=== PATIENT | male | born 1985 ===

== ENCOUNTER 2017-09-11 14:07 | Emergency (ER) | payer OTHER ==
[2017-09-11 14:07] VITALS: BMI 20.3
[2017-09-11 14:18] VITALS: BP 137/63; PULSE 77; RESP 18; TEMP 96; O2SAT 98
--- NOTE | 2017-09-11 14:44 | ED PDOC ---
HPI: CCC, URI, Sore Throat Time Seen by Provider: 09/11/17 14:20 Chief Complaint (Nursing): Flu-like Symptoms Chief Complaint (Provider): Flu-like symptoms History Per: Patient History/Exam Limitations: no limitations Onset/Duration Of Symptoms: Days (5) Current Symptoms Are (Timing): Still Present Associated Symptoms: Chills, Cough (productive), Sputum (greenish) Pain Scale Rating Of: 5 Additional Complaint(s): Josue Spann is a 32 year old male, with a past medical history of depression, who presents to the emergency department complaining of a productive cough with green sputum associated with tactile chills, and sweats at night onset for 5 days. He denies taking any over the counter medications. He denies any fever or chills. No further medical complaints. PMD: Lai [place]. Past Medical History Reviewed: Historical Data, Nursing Documentation, Vital Signs Vital Signs: Last Vital Signs Temp 96 F L 09/11/17 14:16 Pulse 77 09/11/17 14:16 Resp 18 09/11/17 14:16 BP 137/63 09/11/17 14:16 Pulse Ox 98 09/11/17 14:48 - Medical History PMH: Depression, Fractures, Seizures - Family History Family History: States: Unknown Family Hx - Immunization History Hx Tetanus Toxoid Vaccination: No Hx Influenza Vaccination: No Hx Pneumococcal Vaccination: No - Home Medications Home Medications: Ambulatory Orders Medication Instructions Recorded Amoxicillin/Clavulanate [Augmentin 1 tab PO Q12 #9 tab 10/26/16 875 MG-125 MG] Naproxen [Naprosyn] 500 mg PO Q12 PRN #20 tablet 10/26/16 Albuterol HFA [Ventolin HFA 90 2 puff IH [id number] PRN #1 inhaler 09/11/17 mcg/actuation (8 g)] Azithromycin [Zithromax] 250 mg PO DAILY #6 tab 09/11/17 Promethazine/Codeine 5 ml PO ONCE PRN #50 ml 09/11/17 [Codeine/Promethazine 10 MG/5 Ml-6.25 MG/5 Ml] Pseudoephedrine HCl 60 mg PO Q6 PRN #24 tablet 09/11/17 predniSONE [predniSONE Tab] 2 tab PO DAILY #10 tab 09/11/17 - Allergies Allergies/Adverse Reactions: Allergies Allergy/AdvReac Type Severity Reaction Status Date / Time No Known Allergies Allergy Verified 11/03/16 08:05 Review of Systems Constitutional: Positive for: Sweats. Negative for: Fever, Chills Respiratory: Positive for: Cough (productive), Sputum (greenish) Physical Exam - Reviewed Nursing Documentation Reviewed: Yes Vital Signs Reviewed: Yes - Physical Exam Appears: Positive for: Well Head Exam: Positive for: ATRAUMATIC, NORMAL INSPECTION, NORMOCEPHALIC Skin: Positive for: Normal Color, Warm, Dry Eye Exam: Positive for: Normal appearance ENT: Positive for: Nasal Congestion Neck: Positive for: Normal, Painless ROM, Supple Respiratory: Positive for: Wheezing (mild). Negative for: Respiratory Distress Neurologic/Psych: Positive for: Alert, Oriented - ECG O2 Sat by Pulse Oximetry: 98 (RA) Pulse Ox Interpretation: Normal - Progress ED Course And Treament: duoneb x 1 dose Medical Decision Making Medical Decision Making: Initial Impression: Productive cough Scribe Attestation: Documented by Luis Eduardo Solo, acting as a scribe for Ronnell CARRILLO. Provider Scribe Attestation: All medical record entries made by the Scribe were at my direction and personally dictated by me. I have reviewed the chart and agree that the record accurately reflects my personal performance of the history, physical exam, medical decision making, and the department course for this patient. I have also personally directed, reviewed, and agree with the discharge instructions and disposition. Disposition - Clinical Impression Clinical Impression: Bronchitis - Patient ED Disposition Is Patient to be Admitted: No - Disposition Referrals: [facility] [Outside] Disposition: Routine/Home Disposition Time: 14:55 Condition: FAIR Prescriptions: Albuterol HFA [Ventolin HFA 90 mcg/actuation (8 g)] 2 puff IH [id number] PRN #1 inhaler PRN Reason: Cough Azithromycin [Zithromax] 250 mg PO DAILY #6 tab predniSONE [predniSONE Tab] 2 tab PO DAILY #10 tab Promethazine/Codeine [Codeine/Promethazine 10 MG/5 Ml-6.25 MG/5 Ml] 5 ml PO ONCE PRN #50 ml PRN Reason: Cough Pseudoephedrine HCl 60 mg PO Q6 PRN #24 tablet PRN Reason: Nasal Congestion Instructions: Acute Bronchitis (ED) Forms: [facility] ([place]), [facility] ED School/Work Excuse
[2017-09-11] MEDS ORDERED: Albuterol 0.083% Inhal Sol (2.5 mg/3 mL) UD INH STA (14:51)
[2017-09-11] MEDS ORDERED: Albuterol-Ipratrop 3 mg / 0.5 (3 ml) UD ONE (14:53)
== END 2017-09-11 15:26 | disposition home or self-care (01) ==
LOC: H.ER 14:07
DX: J40 Bronchitis, not specified as acute or chronic (principal); Z86.59 Personal history of other mental and behavioral disorders

== ENCOUNTER 2018-11-19 08:09 | Emergency (ER) | payer MEDICAID, OTHER ==
[2018-11-19 08:10] VITALS: BMI 20.3
[2018-11-19 08:20] VITALS: RESP 16; O2SAT 99
--- NOTE | 2018-11-19 08:40 | ED PDOC ---
HPI: Dental Pain/Injury Time Seen by Provider: 11/19/18 08:13 Chief Complaint (Nursing): Dental Pain History Per: Patient Onset/Duration Of Symptoms: Other (2 years) Current Symptoms Are (Timing): Still Present Severity: Moderate Additional Complaint(s): Right lower jaw/tooth pain x 2 years. Denies fever or drainage. Denies injury. Denies sore throat. Past Medical History Vital Signs: Last Vital Signs Temp 97.7 F 11/19/18 08:19 Pulse 67 11/19/18 08:19 Resp 16 11/19/18 08:19 BP 139/68 11/19/18 08:19 Pulse Ox 99 11/19/18 08:19 - Medical History PMH: Depression, Fractures, Seizures - Family History Family History: States: Unknown Family Hx - Immunization History Hx Tetanus Toxoid Vaccination: No Hx Influenza Vaccination: No Hx Pneumococcal Vaccination: No - Home Medications Home Medications: Ambulatory Orders Medication Instructions Recorded Amoxicillin/Clavulanate [Augmentin 1 tab PO Q12 #9 tab 10/26/16 875 MG-125 MG] Naproxen [Naprosyn] 500 mg PO Q12 PRN #20 tablet 10/26/16 Albuterol HFA [Ventolin HFA 90 2 puff IH [id number] PRN #1 inhaler 09/11/17 mcg/actuation (8 g)] Azithromycin [Zithromax] 250 mg PO DAILY #6 tab 09/11/17 Promethazine/Codeine 5 ml PO ONCE PRN #50 ml 09/11/17 [Codeine/Promethazine 10 MG/5 Ml-6.25 MG/5 Ml] Pseudoephedrine HCl 60 mg PO Q6 PRN #24 tablet 09/11/17 predniSONE [predniSONE Tab] 2 tab PO DAILY #10 tab 09/11/17 Amoxicillin/Potassium Clav 1 tab PO TID #30 tab 11/19/18 [Augmentin 500 mg-125 mg] Naproxen [Naprosyn] 500 mg PO Q12H #20 tab 11/19/18 - Allergies Allergies/Adverse Reactions: Allergies Allergy/AdvReac Type Severity Reaction Status Date / Time No Known Allergies Allergy Verified 11/03/16 08:05 Review of Systems Constitutional: Negative for: Fever ENT: Positive for: Mouth Pain. Negative for: Throat Pain Respiratory: Negative for: Shortness of Breath Physical Exam - Physical Exam Appears: Positive for: Non-toxic, No Acute Distress Skin: Positive for: Normal Color, Warm, DRY Eye Exam: Positive for: Normal appearance ENT: Positive for: Other (Right lower impacted molar. No swelling or drainage. ). Negative for: Pharyngeal Erythema, Tonsillar Exudate, Tonsillar Swelling Neck: Positive for: Normal, Painless ROM, Supple - ECG O2 Sat by Pulse Oximetry: 99 Disposition - Clinical Impression Clinical Impression: Impacted tooth - Patient ED Disposition Is Patient to be Admitted: No Counseled Patient/Family Regarding: Diagnosis, Need For Followup, Rx Given - Disposition Referrals: Clay Gonzalez DDS [Staff Provider] - Disposition: Routine/Home Disposition Time: 08:40 Condition: FAIR Prescriptions: Amoxicillin/Potassium Clav [Augmentin 500 mg-125 mg] 1 tab PO TID #30 tab Naproxen [Naprosyn] 500 mg PO Q12H #20 tab Instructions: Impacted Tooth (DC), Dental Pain (DC)
[2018-11-19 09:04] VITALS: BP 128/70; PULSE 68; TEMP 97.2
== END 2018-11-19 09:05 | disposition home or self-care (01) ==
LOC: H.ER 08:09
DX: K01.1 Impacted teeth (principal)

== ENCOUNTER 2019-03-21 03:41 | Emergency (ER) | payer MEDICAID, OTHER ==
[2019-03-21 03:41] VITALS: BMI 20.3
[2019-03-21 04:10] VITALS: BP 145/81; PULSE 87; RESP 18; TEMP 98.6; O2SAT 98
[2019-03-21] MEDS ORDERED: cefTRIAXone (Rocephin) 250 mg Inj IM STA (04:32)
--- NOTE | 2019-03-21 04:38 | ED PDOC ---
HPI: Male Pain Time Seen by Provider: 03/21/19 04:18 Chief Complaint (Nursing): Male Genitourinary Chief Complaint (Provider): Male genitourinary History Per: Patient History/Exam Limitations: no limitations Onset/Duration Of Symptoms: Days Current Symptoms Are (Timing): Still Present Severity: Mild Pain Scale Rating Of: 4 Quality Of Discomfort: Burning Associated Symptoms: Urinary Symptoms (burning on urination ). denies: Fever, Chills, Nausea, Vomiting, Diarrhea, Loss Of Appetite, Back Pain, Chest Pain, Constipation Alleviating Factors: None Additional History Per: Patient Additional Complaint(s): 33 year old male with no medical hx presents to the ED c/o having yellow discharge from penis and "cut" to the penis for 2 days. Patient states he had unprotected sex with a female on Sunday. He states the female called him today and reported that she had "AIDS". Patient denies nausea, vomiting, fever. Past Medical History Reviewed: Historical Data, Nursing Documentation, Vital Signs Vital Signs: Last Vital Signs Temp 98.6 F 03/21/19 04:08 Pulse 87 03/21/19 04:08 Resp 18 03/21/19 04:08 BP 145/81 03/21/19 04:08 Pulse Ox 98 03/21/19 04:08 RADHA Report Viewed: No Primary Care Provider: Armaan Evans - Medical History PMH: No Chronic Diseases, Depression, Fractures, Seizures - Surgical History Surgical History: No Surg Hx - Family History Family History: States: Unknown Family Hx - Social History Alcohol: None Drugs: Denies - Immunization History Hx Tetanus Toxoid Vaccination: No Hx Influenza Vaccination: No Hx Pneumococcal Vaccination: No - Home Medications Home Medications: Ambulatory Orders Medication Instructions Recorded Amoxicillin/Clavulanate [Augmentin 1 tab PO Q12 #9 tab 10/26/16 875 MG-125 MG] Naproxen [Naprosyn] 500 mg PO Q12 PRN #20 tablet 10/26/16 Albuterol HFA [Ventolin HFA 90 2 puff IH [id number] PRN #1 inhaler 09/11/17 mcg/actuation (8 g)] Azithromycin [Zithromax] 250 mg PO DAILY #6 tab 09/11/17 Promethazine/Codeine 5 ml PO ONCE PRN #50 ml 09/11/17 [Codeine/Promethazine 10 MG/5 Ml-6.25 MG/5 Ml] Pseudoephedrine HCl 60 mg PO Q6 PRN #24 tablet 09/11/17 predniSONE [predniSONE Tab] 2 tab PO DAILY #10 tab 09/11/17 Amoxicillin/Potassium Clav 1 tab PO TID #30 tab 11/19/18 [Augmentin 500 mg-125 mg] Naproxen [Naprosyn] 500 mg PO Q12H #20 tab 11/19/18 Acyclovir 400 mg PO TID #21 tablet 03/21/19 - Allergies Allergies/Adverse Reactions: Allergies Allergy/AdvReac Type Severity Reaction Status Date / Time No Known Allergies Allergy Verified 11/03/16 08:05 Review of Systems ROS Statement: Except As Marked, All Systems Reviewed And Found Negative Constitutional: Negative for: Fever, Chills, Sweats, Weakness, Malaise, Weight loss Eyes: Negative for: Pain, Vision Change, Conjunctivae Inflammation, Eyelid Inflammation, Redness ENT: Negative for: Ear Discharge, Nose Pain, Mouth Pain, Throat Pain Cardiovascular: Negative for: Chest Pain, Palpitations Respiratory: Negative for: Cough, Shortness of Breath, SOB with Exertion Gastrointestinal: Negative for: Nausea, Vomiting, Abdominal Pain Genitourinary Male: Positive for: Penile Discharge (yellow penile discharge), Rash, Penile Pain. Negative for: Scrotal Pain Physical Exam - Reviewed Nursing Documentation Reviewed: Yes Vital Signs Reviewed: Yes - Physical Exam Appears: Positive for: Well, Non-toxic, No Acute Distress Head Exam: Positive for: ATRAUMATIC, NORMAL INSPECTION, NORMOCEPHALIC Skin: Positive for: Normal Color, Warm, DRY Eye Exam: Positive for: Normal appearance, PERRL ENT: Positive for: Normal ENT Inspection Neck: Positive for: Normal, Painless ROM, Supple Cardiovascular/Chest: Positive for: Regular Rate, Rhythm Respiratory: Positive for: CNT, Normal Breath Sounds Gastrointestinal/Abdominal: Positive for: Normal Exam, Bowel Sounds, Soft. Negative for: Tenderness, Distended Male Genital Exam: Positive for: lesions (lesion noted to the shaft of the penis near the head of the penies, erythema to border of the lesion with light wound base. painful ), urethral discharge (none seen at this ). Negative for: bleeding, epididymal tenderness, hernia mass, testicular tenderness (R), testicular tenderness (L) Back: Positive for: Normal Inspection Extremity: Positive for: Normal ROM Neurological/Psych: Positive for: Awake, Alert, Normal Tone, Oriented - Laboratory Results Urine dip results: Negative for: Leukocyte Esterase, Blood, Nitrate, Ketones, Glucose, Bilirubin, Protein - ECG O2 Sat by Pulse Oximetry: 98 Medical Decision Making Medical Decision Making: rapid HIV UA HIV-1 pcr RPR Rocephin 250mg im Zithromax 1000mg HIV- non reactive. Patient advised to be re-tested in 6 months. Patient also advised he may have genital herpes, blood work results will come back in 2-3 days. if positive patient will be contacted. Patient treated prophylactically for STi and given prescription for Acyclovir for presumed gential herpes. patient states understanding and agrees with plan,. Disposition - Clinical Impression Clinical Impression: STI (sexually transmitted infection) - Patient ED Disposition Is Patient to be Admitted: No Counseled Patient/Family Regarding: Diagnosis, Need For Followup, Rx Given - Disposition Referrals: Armaan Evans MD [Primary Care Provider] - Disposition: Routine/Home Disposition Time: 04:35 Condition: GOOD Prescriptions: Acyclovir 400 mg PO TID #21 tablet Instructions: Sexually-Transmitted Diseases, STD Prevention Forms: [facility] (Armenian) Print Language: BELIZEAN - POA Present On Arrival: None
[2019-03-21] MEDS ORDERED: cefTRIAXone (Rocephin) 250 mg Inj ONE (04:57)
[2019-03-21] MEDS ORDERED: Sterile Water 10 ML IV ONE (04:57)
== END 2019-03-21 06:33 | disposition home or self-care (01) ==
LOC: H.ER 03:41
DX: A64 Unspecified sexually transmitted disease (principal)
CPT/HCPCS: 86592; 87086; 87390; 87491; 87591; 96372; 99282; J0696